=== PATIENT | female | born 1945 | race Caucasian/White ===

== ENCOUNTER 2020-02-28 21:37 | Emergency (ER) | payer MEDICARE ==
[~2020-02-28] VITALS: Ht 58.4 cm; Wt 70.0 kg
[2020-02-28 22:00] LABS: HEMOGLOBIN 11.9 g/dl (12.0-16.0); IMMATURE GRANULOCYTES 0.4 % (0.0-5.0); MEAN CELL VOLUME 97.4 fL CALC (80.0-100.0); MEAN CORPUSCULAR HGB 31.3 pG CALC (26.0-32.0); MEAN CORPUSCULAR HGB CONC 32.2 g/dL CAL (32.0-36.0); NEUT# 4.95 thou/uL (2.00-7.15); RED BLOOD COUNT 3.8 mill/uL (4.20-5.60); RED CELL DISTRI WIDTH 13.2 % (11.5-15.5)
[2020-02-28 22:15] LABS: ALBUMIN 3.6 g/dL (3.2-5.0); ALKALINE PHOSPHATASE 139 u/l (38-126); ANION GAP 9 (6-22 (CALC)); BILIRUBIN, TOTAL 0.6 mg/dL (0.0-1.4); BUN 14 mg/dL (8-23); BUN/CREATININE RATIO 19 (12-20 (CALC)); CARBON DIOXIDE 28 mmol/l (22-30); CHLORIDE 108 mmol/l (95-108); CREATININE 0.7 mg/dL (0.5-1.0); GFR > 60 ML/MIN (>=60 (CALC)); GFR FOR AFR.AMER. > 60 ML/MIN (>=60 (CALC)); SGOT/AST 26 u/l (9-36); SODIUM 141 mmol/l (137-146); TOTAL PROTEIN 6.2 g/dL (6.3-8.2)
[2020-02-28 22:27] LABS: MYOGLOBIN 66 ng/mL (0 - 62)
[2020-02-28 23:23] LABS: URINE BILIRUBIN - DIPSTICK NEGATIVE (NEGATIVE); URINE BLOOD DIPSTICK NEGATIVE (NEGATIVE); URINE COLOR YELLOW; URINE GLUCOSE - DIPSTICK NEGATIVE (NEGATIVE); URINE KETONE NEGATIVE (NEGATIVE); URINE LEUK ESTERASE NEGATIVE (NEGATIVE); URINE NITRITE - DIPSTICK NEGATIVE (Negative); URINE PROTEIN - DIPSTICK TRACE mg/dL (NEG-TRACE); URINE UROBILINOGEN - DIPSTICK 0.2 E.U./dL (0.2)
[2020-02-28] MEDS ORDERED: TAM75CAP PO (23:39)
[2020-02-28 23:40] VITALS: BP 145/71
== END 2020-02-28 23:40 | disposition home or self-care (01) ==
LOC: ED 21:37
PROVIDERS: Emergency Medicine
DX: J10.1 Influenza due to other identified influenza virus with other respiratory manifestations (principal); I10 Essential (primary) hypertension; Z20.828 Contact with and (suspected) exposure to other viral communicable diseases

== ENCOUNTER 2020-07-21 13:40 | Emergency (ER) | payer MEDICARE ==
[~2020-07-21] VITALS: Ht 154.9 cm; Wt 71.0 kg
[~2020-07-21 13:40] MED LIST: TAM75CAP PO
[2020-07-21] MEDS ORDERED: BACTRIM DS1 TAB PO (14:27)
[2020-07-21] MEDS ORDERED: KEFLEX500 MG PO (14:27)
[2020-07-21] MEDS ORDERED: VENLAFAXINE HCL75 M1 PO (14:48)
[2020-07-21] MEDS ORDERED: MELOXICAM7.5 MG PO (14:48)
[2020-07-21] MEDS ORDERED: PRESERVISION PO (14:50)
[2020-07-21] MEDS ORDERED: VITAMIN D32000 UNI2 PO (14:51)
[2020-07-21] MEDS ORDERED: DONEPEZIL10 MG PO (14:52)
[2020-07-21] MEDS ORDERED: TEMAZEPAM30 MG PO (14:53)
[2020-07-21] MEDS ORDERED: PRILOSEC20 MG/CAP PO (14:54)
[2020-07-21] MEDS ORDERED: TOPROL XL25 M1 PO (14:56)
[2020-07-21] MEDS ORDERED: LEVOTHYROXIN75 MCG PO (14:57)
[2020-07-21] MEDS ORDERED: LOSARTAN POTASS50 MG PO (14:58)
[2020-07-21] MEDS ORDERED: NORVASC PO (14:58)
[2020-07-21 15:10] VITALS: BP 128/79
== END 2020-07-21 15:10 | disposition home or self-care (01) ==
LOC: ED 13:40
DX: L30.9 Dermatitis, unspecified (principal); I10 Essential (primary) hypertension

== ENCOUNTER 2021-12-27 11:23 | Emergency (ER) | payer MEDICARE ==
[~2021-12-27] VITALS: Ht 154.9 cm; Wt 70.0 kg
[2021-12-27] VITALS (15 sets, daily range): BP systolic 144–175; BP diastolic 72–95
[~2021-12-27 11:23] MED LIST changes: +BACTRIM DS1 TAB PO; +DONEPEZIL10 MG PO; +KEFLEX500 MG PO; +LEVOTHYROXIN75 MCG PO; +LOSARTAN POTASS50 MG PO; +MELOXICAM7.5 MG PO; +NORVASC PO; +PRESERVISION PO; +PRILOSEC20 MG/CAP PO; +TEMAZEPAM30 MG PO; +TOPROL XL25 M1 PO; +VENLAFAXINE HCL75 M1 PO; +VITAMIN D32000 UNI2 PO
[2021-12-27 11:55] LABS: HEMATOCRIT 47.5 % (37.0-47.0); HEMOGLOBIN 15.7 g/dl (12.0-16.0); IMMATURE GRANULOCYTES 0.1 % (0.0-5.0); MEAN CELL VOLUME 102.6 fL CALC (80.0-100.0); MEAN CORPUSCULAR HGB 33.9 pG CALC (26.0-32.0); MEAN CORPUSCULAR HGB CONC 33.1 g/dL CAL (32.0-36.0); NEUT# 7.79 thou/uL (2.00-7.15); RED BLOOD COUNT 4.63 mill/uL (4.20-5.60); RED CELL DISTRI WIDTH 12.9 % (11.5-15.5)
[2021-12-27 12:51] LABS: URINE BILIRUBIN - DIPSTICK NEGATIVE (NEGATIVE); URINE BLOOD DIPSTICK NEGATIVE (NEGATIVE); URINE COLOR YELLOW; URINE GLUCOSE - DIPSTICK NEGATIVE (NEGATIVE); URINE KETONE NEGATIVE (NEGATIVE); URINE LEUK ESTERASE NEGATIVE (NEGATIVE); URINE PH 5.5 (4.5-8.0); URINE PROTEIN - DIPSTICK 100 mg/dL (NEG-TRACE); URINE SPECIFIC GRAVITY >=1.030; URINE UROBILINOGEN - DIPSTICK 0.2 E.U./dL (0.2)
[2021-12-27 12:54] LABS: URINE BACTERIA FEW hpf; URINE NITRITE - DIPSTICK NEGATIVE (Negative); URINE SQUAMOUS EPITHELIAL CELL FEW EPI/hpf (0-FEW); URINE WBC 0-2 WBC/hpf (0-5)
[2021-12-27 12:55] LABS: URINE HYALINE CAST FEW lpf (NONE-RARE); URINE MUCUS FEW hpf (NONE-FEW)
[2021-12-27 13:05] LABS: ALKALINE PHOSPHATASE 94 u/l (38-126); ANION GAP 12 (6-22 (CALC)); BILIRUBIN, TOTAL 0.6 mg/dL (0.0-1.4); BUN 13 mg/dL (8-23); BUN/CREATININE RATIO 16 (12-20 (CALC)); CARBON DIOXIDE 27 mmol/l (22-30); CHLORIDE 107 mmol/l (95-108); CREATININE 0.8 mg/dL (0.5-1.0); GFR FOR AFR.AMER. > 60 ML/MIN (>=60 (CALC)); GFR OTHER RACES > 60 ML/MIN (>=60 (CALC)); POTASSIUM 3.6 mmol/l (3.5-5.1); SGOT/AST 26 u/l (9-36); SODIUM 142 mmol/l (137-146); TOTAL PROTEIN 7.2 g/dL (6.3-8.2)
[2021-12-27 13:06] LABS: ALBUMIN 4.5 g/dL (3.2-5.0)
== END 2021-12-27 15:24 | disposition home or self-care (01) ==
LOC: ED 11:23
PROVIDERS: Family Medicine
DX: R11.2 Nausea with vomiting, unspecified (principal); R19.7 Diarrhea, unspecified; R91.8 Other nonspecific abnormal finding of lung field; I10 Essential (primary) hypertension; E78.5 Hyperlipidemia, unspecified; E03.9 Hypothyroidism, unspecified; F32.A Depression, unspecified; F03.90 Unspecified dementia, unspecified severity, without behavioral disturbance, psychotic disturbance, mood disturbance, and anxiety; Z20.822 Contact with and (suspected) exposure to COVID-19

== ENCOUNTER 2022-04-17 06:33 | Emergency (ER) | payer MEDICARE ==
[2022-04-17] VITALS (9 sets, daily range): BP systolic 156–210; BP diastolic 81–93
[~2022-04-17] VITALS: Ht 154.9 cm; Wt 70.4 kg
[2022-04-17 07:44] LABS: IMMATURE GRANULOCYTES 0.3 % (0.0-5.0); MEAN CELL VOLUME 101.7 fL CALC (80.0-100.0); MEAN CORPUSCULAR HGB 33.6 pG CALC (26.0-32.0); NEUT# 3.99 thou/uL (2.00-7.15); RED BLOOD COUNT 4.08 mill/uL (4.20-5.60); RED CELL DISTRI WIDTH 12.9 % (11.5-15.5)
[2022-04-17 07:46] LABS: HEMATOCRIT 41.5 % (37.0-47.0); HEMOGLOBIN 13.7 g/dl (12.0-16.0)
[2022-04-17 08:01] LABS: ALBUMIN 4.2 g/dL (3.2-5.0); ALKALINE PHOSPHATASE 102 u/l (38-126); ANION GAP 13 (6-22 (CALC)); BUN 14 mg/dL (8-23); BUN/CREATININE RATIO 19 (12-20 (CALC)); CARBON DIOXIDE 27 mmol/l (22-30); CHLORIDE 109 mmol/l (95-108); CREATININE 0.7 mg/dL (0.5-1.0); GFR FOR AFR.AMER. > 60 ML/MIN (>=60 (CALC)); GFR OTHER RACES > 60 ML/MIN (>=60 (CALC)); LIPASE 80 u/l (23-300); POTASSIUM 3.5 mmol/l (3.5-5.1); SGOT/AST 22 u/l (9-36); SODIUM 145 mmol/l (137-146); TOTAL PROTEIN 6.5 g/dL (6.3-8.2)
[2022-04-17 08:07] LABS: BILIRUBIN, TOTAL 0.3 mg/dL (0.0-1.4)
[2022-04-17 08:10] LABS: URINE BILIRUBIN - DIPSTICK NEGATIVE (NEGATIVE); URINE BLOOD DIPSTICK NEGATIVE (NEGATIVE); URINE COLOR YELLOW; URINE GLUCOSE - DIPSTICK NEGATIVE (NEGATIVE); URINE KETONE NEGATIVE (NEGATIVE); URINE PROTEIN - DIPSTICK TRACE mg/dL (NEG-TRACE); URINE SPECIFIC GRAVITY 1.015; URINE UROBILINOGEN - DIPSTICK 0.2 E.U./dL (0.2)
[2022-04-17 08:16] LABS: URINE BACTERIA FEW hpf; URINE LEUK ESTERASE SMALL (NEGATIVE); URINE NITRITE - DIPSTICK NEGATIVE (Negative)
[2022-04-17] MEDS ORDERED: NITROFURANTN100 M2 PO (09:30)
== END 2022-04-17 09:52 | disposition home or self-care (01) ==
LOC: ED 06:33
PROVIDERS: Family Medicine
DX: N39.0 Urinary tract infection, site not specified (principal); R19.7 Diarrhea, unspecified; R11.2 Nausea with vomiting, unspecified; I10 Essential (primary) hypertension; E03.9 Hypothyroidism, unspecified; F32.A Depression, unspecified; F03.90 Unspecified dementia, unspecified severity, without behavioral disturbance, psychotic disturbance, mood disturbance, and anxiety; Z20.822 Contact with and (suspected) exposure to COVID-19
CPT/HCPCS: Q9967

== ENCOUNTER 2022-06-29 14:23 | Emergency (ER) | payer MEDICARE ==
[~2022-06-29] VITALS: Ht 154.9 cm; Wt 65.0 kg
[~2022-06-29 14:23] MED LIST changes: +NITROFURANTN100 M2 PO
[2022-06-29 15:09] LABS: URINE BILIRUBIN - DIPSTICK NEGATIVE (NEGATIVE); URINE BLOOD DIPSTICK TRACE-LYSED (NEGATIVE); URINE COLOR YELLOW; URINE GLUCOSE - DIPSTICK NEGATIVE (NEGATIVE); URINE KETONE NEGATIVE (NEGATIVE); URINE LEUK ESTERASE NEGATIVE (NEGATIVE); URINE PH 5.5 (4.5-8.0); URINE PROTEIN - DIPSTICK 30 mg/dL (NEG-TRACE); URINE SPECIFIC GRAVITY >=1.030; URINE UROBILINOGEN - DIPSTICK 0.2 E.U./dL (0.2)
[2022-06-29 15:12] LABS: URINE NITRITE - DIPSTICK NEGATIVE (Negative)
[2022-06-29 15:16] LABS: URINE RBC 0-2 RBC/hpf (0-5); URINE SQUAMOUS EPITHELIAL CELL FEW EPI/hpf (0-FEW)
[2022-06-29] MEDS ORDERED: BACTRIM DS1 TAB PO ×2 (15:31→15:52)
[2022-06-29] MEDS ORDERED: DETROL LA4 MG PO ×2 (15:31→15:52)
[2022-06-29 15:39] VITALS: BP 168/86
[2022-06-29] MEDS ORDERED: NITROFURANTN100 M2 PO (15:52)
== END 2022-06-29 15:45 | disposition home or self-care (01) ==
LOC: ED 14:23
PROVIDERS: Emergency Medicine
DX: N32.89 Other specified disorders of bladder (principal); I10 Essential (primary) hypertension; E03.9 Hypothyroidism, unspecified; F32.A Depression, unspecified; F03.90 Unspecified dementia, unspecified severity, without behavioral disturbance, psychotic disturbance, mood disturbance, and anxiety

== ENCOUNTER 2022-09-01 13:33 | Observation (INO) | payer MEDICARE ==
[2022-09-01] VITALS (11 sets, daily range): BP systolic 116–198; BP diastolic 69–99
[~2022-09-01] VITALS: Ht 154.9 cm; Wt 86.1 kg
[~2022-09-01 13:33] MED LIST changes: +DETROL LA4 MG PO
[2022-09-01 14:09] LABS: BASO% 0.4 % (0-3); EOS% 2.6 % (0-8); HEMATOCRIT 40.3 % (37.0-47.0); HEMOGLOBIN 12.8 g/dl (12.0-16.0); IMMATURE GRANULOCYTES 0.3 % (0.0-5.0); LYMPH% 15.1 % (15-41); MEAN CELL VOLUME 105.5 fL CALC (80.0-100.0); MEAN CORPUSCULAR HGB 33.5 pG CALC (26.0-32.0); MEAN CORPUSCULAR HGB CONC 31.8 g/dL CAL (32.0-36.0); MONO% 10.4 % (2-13); NEUT# 5.22 thou/uL (2.00-7.15); NEUT% 71.2 % (42-76); RED BLOOD COUNT 3.82 mill/uL (4.20-5.60); RED CELL DISTRI WIDTH 12.8 % (11.5-15.5)
[2022-09-01 14:21] LABS: ALKALINE PHOSPHATASE 86 u/l (38-126); ANION GAP 9 (6-22 (CALC)); BILIRUBIN, TOTAL 0.2 mg/dL (0.02-1.3); BUN 17 mg/dL (8-23); BUN/CREATININE RATIO 23 (12-20 (CALC)); CARBON DIOXIDE 26 mmol/l (22-30); CHLORIDE 110 mmol/l (95-108); CREATININE 0.7 mg/dL (0.5-1.0); GFR FOR AFR.AMER. > 60 ML/MIN (>=60 (CALC)); GFR OTHER RACES > 60 ML/MIN (>=60 (CALC)); POTASSIUM 3.9 mmol/l (3.5-5.1); SGOT/AST 22 u/l (9-36); SODIUM 141 mmol/l (137-146); TOTAL PROTEIN 6.1 g/dL (6.3-8.2)
[2022-09-02] VITALS (7 sets, daily range): BP systolic 127–185; BP diastolic 71–92
[2022-09-02 05:24] LABS: BASO% 0.4 % (0-3); EOS% 4.7 % (0-8); HEMATOCRIT 43.3 % (37.0-47.0); HEMOGLOBIN 13.9 g/dl (12.0-16.0); IMMATURE GRANULOCYTES 0.3 % (0.0-5.0); LYMPH% 14.6 % (15-41); MEAN CELL VOLUME 105.6 fL CALC (80.0-100.0); MEAN CORPUSCULAR HGB 33.9 pG CALC (26.0-32.0); MEAN CORPUSCULAR HGB CONC 32.1 g/dL CAL (32.0-36.0); MONO% 9.1 % (2-13); NEUT# 5.48 thou/uL (2.00-7.15); NEUT% 70.9 % (42-76); RED BLOOD COUNT 4.1 mill/uL (4.20-5.60); RED CELL DISTRI WIDTH 12.5 % (11.5-15.5)
[2022-09-02 05:45] LABS: ALBUMIN 4.4 g/dL (3.2-5.0); ALKALINE PHOSPHATASE 101 u/l (38-126); BUN 11 mg/dL (8-23); BUN/CREATININE RATIO 16 (12-20 (CALC)); CHLORIDE 104 mmol/l (95-108); CREATININE 0.7 mg/dL (0.5-1.0); GFR FOR AFR.AMER. > 60 ML/MIN (>=60 (CALC)); GFR OTHER RACES > 60 ML/MIN (>=60 (CALC)); POTASSIUM 3.8 mmol/l (3.5-5.1); SGOT/AST 25 u/l (9-36); SODIUM 141 mmol/l (137-146); TOTAL PROTEIN 7.1 g/dL (6.3-8.2)
[2022-09-02 05:47] LABS: ANION GAP 8 (6-22 (CALC)); BILIRUBIN, TOTAL 0.4 mg/dL (0.02-1.3); CARBON DIOXIDE 33 mmol/l (22-30)
[2022-09-03 04:07] VITALS: BP 199/89
[2022-09-03 06:21] VITALS: BP 159/71
[2022-09-03 08:00] VITALS: BP 159/71
[2022-09-04 06:50] VITALS: BP 116/52
[2022-09-04] MEDS ORDERED: TEMAZEPAM30 MG PO (09:09)
[2022-09-04 11:10] VITALS: BP 169/72
[2022-09-04 11:31] VITALS: BP 116/52
== END 2022-09-04 15:10 ==
LOC: ED 13:33 → ED-I 16:35 → ED 17:02 → MS2 17:03
PROVIDERS: Family Medicine; ADMIT Internal Medicine; ATTEND Internal Medicine
DX: M25.552 Pain in left hip (principal); I10 Essential (primary) hypertension; F03.92 Unspecified dementia, unspecified severity, with psychotic disturbance; E03.9 Hypothyroidism, unspecified; G47.00 Insomnia, unspecified; F41.9 Anxiety disorder, unspecified; F32.A Depression, unspecified; Z74.2 Need for assistance at home and no other household member able to render care; Z20.822 Contact with and (suspected) exposure to COVID-19

== ENCOUNTER 2022-12-01 07:42 | Emergency (ER) | payer MEDICARE ==
[~2022-12-01] VITALS: Ht 154.9 cm; Wt 66.0 kg
[2022-12-01 07:44] VITALS: BP 178/77
[2022-12-01 08:01] VITALS: BP 173/78
[2022-12-01 08:18] VITALS: BP 192/89
[2022-12-01 08:30] VITALS: BP 186/80
[2022-12-01] MEDS ORDERED: METHOCARBAMOL500 MG PO (11:13)
[2022-12-01 11:30] VITALS: BP 157/74
[2022-12-01 11:31] VITALS: BP 157/74
== END 2022-12-01 12:01 | disposition home or self-care (01) ==
LOC: ED 07:42
DX: M54.9 Dorsalgia, unspecified (principal); I10 Essential (primary) hypertension; E11.9 Type 2 diabetes mellitus without complications; Z91.81 History of falling

== ENCOUNTER 2022-12-07 16:45 | Emergency (ER) | payer MEDICARE ==
[2022-12-07] VITALS (9 sets, daily range): BP systolic 133–185; BP diastolic 62–99
[~2022-12-07] VITALS: Ht 154.9 cm; Wt 64.9 kg
[~2022-12-07 16:45] MED LIST changes: +METHOCARBAMOL500 MG PO
== END 2022-12-07 19:00 | disposition home or self-care (01) ==
LOC: ED 16:45
DX: F41.9 Anxiety disorder, unspecified (principal); I10 Essential (primary) hypertension; E11.9 Type 2 diabetes mellitus without complications; F32.A Depression, unspecified

== ENCOUNTER 2024-05-31 11:11 | Emergency (ER) | payer MEDICARE ==
[~2024-05-31] VITALS: Ht 154.9 cm; Wt 64.0 kg
[~2024-05-31 11:11] MED LIST changes: +AMOX/K CLAV875 M1 PO; +ZPAK PO
[2024-05-31 11:27] VITALS: BP 151/105
[2024-05-31 11:35] VITALS: BP 202/97
[2024-05-31] MEDS ORDERED: TEMAZEPAM15 MG PO (11:40)
[2024-05-31] MEDS ORDERED: TRAMADOL HYDROC50 M1 PO (11:40)
[2024-05-31] MEDS ORDERED: PREDNISONE50 MG PO (11:42)
[2024-05-31 12:00] VITALS: BP 203/98
[2024-05-31 12:04] LABS: BASO% 0.6 % (0-3); HEMATOCRIT 41.2 % (37.0-47.0); HEMOGLOBIN 13.4 g/dl (12.0-16.0); IMMATURE GRANULOCYTES 0.5 % (0.0-5.0); LYMPH% 17.3 % (15-41); MEAN CELL VOLUME 113.5 fL CALC (80.0-100.0); MEAN CORPUSCULAR HGB 36.9 pG CALC (26.0-32.0); MEAN CORPUSCULAR HGB CONC 32.5 g/dL CAL (32.0-36.0); MONO% 12.6 % (2-13); NEUT# 4.38 thou/uL (2.00-7.15); RED BLOOD COUNT 3.63 mill/uL (4.20-5.60); RED CELL DISTRI WIDTH 11.9 % (11.5-15.5)
[2024-05-31 12:16] LABS: ALBUMIN 4.4 g/dL (3.2-5.0); ALKALINE PHOSPHATASE 95 u/l (38-126); ANION GAP 12 (6-22 (CALC)); BUN 14 mg/dL (8-23); BUN/CREATININE RATIO 22 (12-20 (CALC)); CARBON DIOXIDE 21 mmol/l (22-30); CHLORIDE 111 mmol/l (95-108); CREATININE 0.6 mg/dL (0.5-1.0); ESTIMATED GFR 91 ML/MIN (>=90 (CALC)); POTASSIUM 4.6 mmol/l (3.5-5.1); SGOT/AST 36 u/l (9-36); SODIUM 139 mmol/l (137-146); TOTAL PROTEIN 7.4 g/dL (6.3-8.2)
[2024-05-31 12:30] LABS: BILIRUBIN, TOTAL 0.8 mg/dL (0.02-1.3)
[2024-05-31] MEDS ORDERED: ELIQUIS5 MG PO (14:33)
[2024-05-31 14:49] VITALS: BP 203/98
== END 2024-05-31 14:49 | disposition left against medical advice (07) ==
LOC: ED 11:11
PROVIDERS: Family Medicine
DX: J18.9 Pneumonia, unspecified organism (principal); I82.622 Acute embolism and thrombosis of deep veins of left upper extremity; C50.912 Malignant neoplasm of unspecified site of left female breast; I10 Essential (primary) hypertension; E11.9 Type 2 diabetes mellitus without complications; F41.9 Anxiety disorder, unspecified; F32.A Depression, unspecified; Z53.29 Procedure and treatment not carried out because of patient's decision for other reasons; Z20.822 Contact with and (suspected) exposure to COVID-19

== ENCOUNTER 2024-06-26 08:07 | Emergency (ER) | payer MEDICARE ==
[2024-06-26] VITALS (7 sets, daily range): BP systolic 165–188; BP diastolic 74–137
[~2024-06-26] VITALS: Ht 154.9 cm; Wt 52.0 kg
[~2024-06-26 08:07] MED LIST changes: +ELIQUIS5 MG PO; +PREDNISONE50 MG PO; +TEMAZEPAM15 MG PO; +TRAMADOL HYDROC50 M1 PO
[2024-06-26 08:39] LABS: BASO% 0.5 % (0-3); EOS% 2.9 % (0-8); IMMATURE GRANULOCYTES 0.2 % (0.0-5.0); LYMPH% 22.5 % (15-41); MEAN CELL VOLUME 118.5 fL CALC (80.0-100.0); MEAN CORPUSCULAR HGB 37.6 pG CALC (26.0-32.0); MEAN CORPUSCULAR HGB CONC 31.7 g/dL CAL (32.0-36.0); MONO% 14.8 % (2-13); NEUT# 3.32 thou/uL (2.00-7.15); NEUT% 59.1 % (42-76); RED BLOOD COUNT 3.46 mill/uL (4.20-5.60); RED CELL DISTRI WIDTH 12.8 % (11.5-15.5)
[2024-06-26 09:25] LABS: ALBUMIN 3.9 g/dL (3.2-5.0); BILIRUBIN, TOTAL 0.4 mg/dL (0.02-1.3); CREATININE 0.6 mg/dL (0.5-1.0); POTASSIUM 4.2 mmol/l (3.5-5.1); TOTAL PROTEIN 6.3 g/dL (6.3-8.2)
[2024-06-26 09:58] LABS: TSH, 3RD GENERATION 3.95 uIU/mL (0.47 - 4.68)
== END 2024-06-26 10:26 | disposition left against medical advice (07) ==
LOC: ED 08:07
PROVIDERS: Family Medicine
DX: R22.1 Localized swelling, mass and lump, neck (principal); I10 Essential (primary) hypertension; E11.9 Type 2 diabetes mellitus without complications; I89.0 Lymphedema, not elsewhere classified; F41.9 Anxiety disorder, unspecified; F32.A Depression, unspecified; Z85.3 Personal history of malignant neoplasm of breast; Z53.29 Procedure and treatment not carried out because of patient's decision for other reasons

== ENCOUNTER 2024-08-16 17:53 | Emergency (ER) | payer MEDICARE ==
[~2024-08-16] VITALS: Ht 154.9 cm; Wt 90.0 kg
[2024-08-16] VITALS (18 sets, daily range): BP systolic 119–204; BP diastolic 81–144
[2024-08-16] MEDS ORDERED: cefTRIAXone SODIUM 2 GM in SODIUM CHLORIDE 0.9% 100 ML IV ONE (17:55)
[2024-08-16 18:31] LABS: BASO% 0.8 % (0-3); EOS% 3.6 % (0-8); HEMATOCRIT 41.3 % (37.0-47.0); HEMOGLOBIN 13.1 g/dl (12.0-16.0); IMMATURE GRANULOCYTES 0.2 % (0.0-5.0); LYMPH% 15.8 % (15-41); MEAN CORPUSCULAR HGB 35.2 pG CALC (26.0-32.0); MEAN CORPUSCULAR HGB CONC 31.7 g/dL CAL (32.0-36.0); NEUT# 4.05 thou/uL (2.00-7.15); NEUT% 68.6 % (42-76); RED BLOOD COUNT 3.72 mill/uL (4.20-5.60); RED CELL DISTRI WIDTH 12.4 % (11.5-15.5)
[2024-08-16 18:47] LABS: ALBUMIN 4.2 g/dL (3.2-5.0); CREATININE 0.7 mg/dL (0.5-1.0); POTASSIUM 4.4 mmol/l (3.5-5.1)
[2024-08-16 18:50] LABS: BILIRUBIN, TOTAL 0.6 mg/dL (0.02-1.3)
[2024-08-16 18:51] LABS: URINE BILIRUBIN - DIPSTICK Negative (NEGATIVE); URINE BLOOD DIPSTICK Trace-intact (NEGATIVE); URINE COLOR Light yellow; URINE GLUCOSE - DIPSTICK Negative (NEGATIVE); URINE KETONE Negative (NEGATIVE); URINE LEUK ESTERASE Negative (NEGATIVE); URINE NITRITE - DIPSTICK Negative (Negative); URINE PH 6.5 (4.5-8.0); URINE PROTEIN - DIPSTICK 100 mg/dL (NEG-TRACE); URINE SPECIFIC GRAVITY 1.015; URINE UROBILINOGEN - DIPSTICK 0.2 E.U./dL (0.2)
[2024-08-16 18:57] LABS: URINE RBC 0-2 RBC/hpf (0-5); URINE SQUAMOUS EPITHELIAL CELL RARE EPI/hpf (0-FEW)
[2024-08-16] MEDS ORDERED: LORazepam 2 MG/ML IV ONE ×2 (20:40→21:55)
== END 2024-08-16 22:49 | disposition short-term general hospital (02) ==
LOC: ED 17:53
PROVIDERS: Family Medicine
DX: R06.02 Shortness of breath (principal); I10 Essential (primary) hypertension; E11.9 Type 2 diabetes mellitus without complications; F03.90 Unspecified dementia, unspecified severity, without behavioral disturbance, psychotic disturbance, mood disturbance, and anxiety; F32.A Depression, unspecified; F41.9 Anxiety disorder, unspecified; Z20.822 Contact with and (suspected) exposure to COVID-19
CPT/HCPCS: J0696; J2060; Q9967